=== PATIENT | male | born 1960 | race Caucasian/White ===

== ENCOUNTER → 2019-12-06 09:09 | Outpatient (BNVA) | payer MEDICARE, SELFPAY | PROVIDERS: Family Provider Nurse Practitioner; PCP Nurse Practitioner; Visit Provider Nurse Practitioner | DX: E11.22 Type 2 diabetes mellitus with diabetic chronic kidney disease (principal); N18.9 Chronic kidney disease, unspecified | CPT/HCPCS: 80053; 80061; 81003; 83036 ==

== ENCOUNTER → 2020-03-26 08:32 | Outpatient (BNVA) | payer MEDICARE, SELFPAY | PROVIDERS: Family Provider Nurse Practitioner; PCP Nurse Practitioner; Visit Provider Nurse Practitioner | DX: E11.22 Type 2 diabetes mellitus with diabetic chronic kidney disease (principal); E78.2 Mixed hyperlipidemia; E55.9 Vitamin D deficiency, unspecified | CPT/HCPCS: 80053; 80061; 81003; 82044; 82306; 83036; 83721 ==

== ENCOUNTER → 2020-03-27 10:02 | Outpatient (BNVA) | payer MEDICARE, SELFPAY | PROVIDERS: Family Provider Nurse Practitioner; PCP Nurse Practitioner; Visit Provider Nurse Practitioner | DX: I10 Essential (primary) hypertension (principal); E11.65 Type 2 diabetes mellitus with hyperglycemia; J30.9 Allergic rhinitis, unspecified; E11.22 Type 2 diabetes mellitus with diabetic chronic kidney disease; R53.83 Other fatigue; J45.990 Exercise induced bronchospasm | CPT/HCPCS: 82607; 85025 ==

== ENCOUNTER → 2020-06-11 08:41 | Outpatient (BNVA) | payer MEDICARE, SELFPAY | PROVIDERS: Family Provider Nurse Practitioner; PCP Nurse Practitioner; Visit Provider Nurse Practitioner | DX: E11.22 Type 2 diabetes mellitus with diabetic chronic kidney disease (principal); E53.8 Deficiency of other specified B group vitamins; E55.9 Vitamin D deficiency, unspecified; E78.2 Mixed hyperlipidemia; N18.3 Chronic kidney disease, stage 3 (moderate); Z79.4 Long term (current) use of insulin | CPT/HCPCS: 80053; 80061; 81000; 82607; 83036 ==

== ENCOUNTER → 2020-09-12 10:28 | Outpatient (BNVA) | payer MEDICARE, SELFPAY | PROVIDERS: Family Provider Nurse Practitioner; PCP Nurse Practitioner; Visit Provider Nurse Practitioner | DX: E11.22 Type 2 diabetes mellitus with diabetic chronic kidney disease (principal); Z79.4 Long term (current) use of insulin; I10 Essential (primary) hypertension; E11.65 Type 2 diabetes mellitus with hyperglycemia; E53.8 Deficiency of other specified B group vitamins; J45.990 Exercise induced bronchospasm; J30.9 Allergic rhinitis, unspecified; M25.569 Pain in unspecified knee; N52.9 Male erectile dysfunction, unspecified; G89.29 Other chronic pain; Z23 Encounter for immunization; N18.30 Chronic kidney disease, stage 3 unspecified | CPT/HCPCS: 80053; 80061; 81000; 82306; 83036 ==

== ENCOUNTER → 2020-09-26 08:18 | Outpatient (BNVA) | payer MEDICARE, SELFPAY | PROVIDERS: Family Provider Nurse Practitioner; PCP Nurse Practitioner; Referring Provider Nurse Practitioner; Visit Provider Orthopaedic Surgery | DX: G89.29 Other chronic pain (principal); M25.562 Pain in left knee; M25.561 Pain in right knee | CPT/HCPCS: 73560; 73565 ==

== ENCOUNTER → 2020-11-01 14:07 | Outpatient (BNVA) | payer MEDICARE, SELFPAY | PROVIDERS: Family Provider Nurse Practitioner; PCP Nurse Practitioner; Visit Provider Nurse Practitioner | DX: J45.990 Exercise induced bronchospasm (principal); E11.22 Type 2 diabetes mellitus with diabetic chronic kidney disease; Z79.4 Long term (current) use of insulin; N18.30 Chronic kidney disease, stage 3 unspecified | CPT/HCPCS: 85025 ==

== ENCOUNTER → 2020-12-04 09:45 | Outpatient (BNVA) | payer MEDICARE, SELFPAY | PROVIDERS: Family Provider Nurse Practitioner; PCP Nurse Practitioner; Visit Provider Nurse Practitioner | DX: E11.22 Type 2 diabetes mellitus with diabetic chronic kidney disease (principal); N18.30 Chronic kidney disease, stage 3 unspecified; Z79.4 Long term (current) use of insulin; I10 Essential (primary) hypertension; E55.9 Vitamin D deficiency, unspecified; E53.8 Deficiency of other specified B group vitamins; G89.29 Other chronic pain; M25.569 Pain in unspecified knee; N52.9 Male erectile dysfunction, unspecified; J30.1 Allergic rhinitis due to pollen | CPT/HCPCS: 80053; 83036 ==

== ENCOUNTER → 2021-03-05 09:39 | Outpatient (BNVA) | payer MEDICARE, SELFPAY | PROVIDERS: Family Provider Nurse Practitioner; PCP Nurse Practitioner; Visit Provider Nurse Practitioner | DX: I10 Essential (primary) hypertension (principal); J30.1 Allergic rhinitis due to pollen; E11.22 Type 2 diabetes mellitus with diabetic chronic kidney disease; E53.8 Deficiency of other specified B group vitamins; Z79.4 Long term (current) use of insulin; M25.569 Pain in unspecified knee; G89.29 Other chronic pain; N52.9 Male erectile dysfunction, unspecified; J01.00 Acute maxillary sinusitis, unspecified; J45.990 Exercise induced bronchospasm; J98.8 Other specified respiratory disorders; N18.30 Chronic kidney disease, stage 3 unspecified | CPT/HCPCS: 80053; 80061; 81000; 82043; 83036 ==

== ENCOUNTER → 2021-06-10 08:54 | Outpatient (BNVA) | payer MEDICARE, SELFPAY | PROVIDERS: Family Provider Nurse Practitioner; PCP Nurse Practitioner; Visit Provider Nurse Practitioner | DX: I10 Essential (primary) hypertension (principal); E11.22 Type 2 diabetes mellitus with diabetic chronic kidney disease; Z79.4 Long term (current) use of insulin; E53.8 Deficiency of other specified B group vitamins; M25.569 Pain in unspecified knee; G89.29 Other chronic pain; J30.1 Allergic rhinitis due to pollen; N52.9 Male erectile dysfunction, unspecified; E55.9 Vitamin D deficiency, unspecified; N18.30 Chronic kidney disease, stage 3 unspecified | CPT/HCPCS: 80053; 81000; 82607; 83036 ==

== ENCOUNTER → 2021-09-26 07:58 | Outpatient (BNVA) | payer MEDICARE, SELFPAY | PROVIDERS: Family Provider Nurse Practitioner; PCP Nurse Practitioner; Visit Provider Nurse Practitioner | DX: E11.22 Type 2 diabetes mellitus with diabetic chronic kidney disease (principal); E55.9 Vitamin D deficiency, unspecified; Z79.4 Long term (current) use of insulin; N18.30 Chronic kidney disease, stage 3 unspecified | CPT/HCPCS: 80053; 81000; 83036 ==

== ENCOUNTER → 2021-12-09 07:58 | Outpatient (BNVA) | payer MEDICARE, SELFPAY | PROVIDERS: Family Provider Nurse Practitioner; PCP Nurse Practitioner; Visit Provider Nurse Practitioner | DX: E11.22 Type 2 diabetes mellitus with diabetic chronic kidney disease (principal); I10 Essential (primary) hypertension; Z79.4 Long term (current) use of insulin; N18.30 Chronic kidney disease, stage 3 unspecified | CPT/HCPCS: 80053; 80061; 83036 ==

== ENCOUNTER → 2021-12-11 09:34 | Outpatient (BNVA) | payer MEDICARE, SELFPAY | PROVIDERS: Family Provider Nurse Practitioner; PCP Nurse Practitioner; Visit Provider Nurse Practitioner | DX: E11.22 Type 2 diabetes mellitus with diabetic chronic kidney disease (principal); I12.9 Hypertensive chronic kidney disease with stage 1 through stage 4 chronic kidney disease, or unspecified chronic kidney disease; N18.30 Chronic kidney disease, stage 3 unspecified; Z79.4 Long term (current) use of insulin | CPT/HCPCS: 81000; 87077; 87086; 87184 ==

== ENCOUNTER → 2022-03-10 08:49 | Outpatient (BNVA) | payer MEDICARE, SELFPAY | PROVIDERS: Family Provider Nurse Practitioner; PCP Nurse Practitioner; Visit Provider Nurse Practitioner | DX: E11.22 Type 2 diabetes mellitus with diabetic chronic kidney disease (principal); Z79.4 Long term (current) use of insulin; I10 Essential (primary) hypertension; J30.1 Allergic rhinitis due to pollen; E53.8 Deficiency of other specified B group vitamins; M25.569 Pain in unspecified knee; N52.9 Male erectile dysfunction, unspecified; G89.29 Other chronic pain; M54.50 Low back pain, unspecified | CPT/HCPCS: 80053; 81003; 83036 ==

== ENCOUNTER → 2022-07-03 09:41 | Outpatient (BNVA) | payer MEDICARE, SELFPAY | PROVIDERS: Family Provider Nurse Practitioner; PCP Nurse Practitioner; Visit Provider Nurse Practitioner | DX: I10 Essential (primary) hypertension (principal); J30.1 Allergic rhinitis due to pollen; E53.8 Deficiency of other specified B group vitamins; Z79.4 Long term (current) use of insulin; E11.22 Type 2 diabetes mellitus with diabetic chronic kidney disease; M25.569 Pain in unspecified knee; N52.9 Male erectile dysfunction, unspecified; M17.12 Unilateral primary osteoarthritis, left knee; L03.119 Cellulitis of unspecified part of limb; G89.29 Other chronic pain; M17.11 Unilateral primary osteoarthritis, right knee | CPT/HCPCS: 80053; 80061; 81000; 83036; 85025 ==

== ENCOUNTER → 2022-09-12 07:20 | Outpatient (BNVA) | payer MEDICARE, SELFPAY | PROVIDERS: Family Provider Nurse Practitioner; PCP Nurse Practitioner; Visit Provider Student in an Organized Health Care Education/Training Program | DX: M17.0 Bilateral primary osteoarthritis of knee (principal); Z68.43 Body mass index [BMI] 50.0-59.9, adult; E66.9 Obesity, unspecified | CPT/HCPCS: 20610; 73560; 73565; 99204; J3301 ==

== ENCOUNTER → 2022-09-16 08:03 | Outpatient (BNVA) | payer MEDICARE, SELFPAY | PROVIDERS: Family Provider Nurse Practitioner; PCP Nurse Practitioner; Visit Provider Nurse Practitioner | DX: E11.22 Type 2 diabetes mellitus with diabetic chronic kidney disease (principal); E53.8 Deficiency of other specified B group vitamins; E55.9 Vitamin D deficiency, unspecified; Z79.4 Long term (current) use of insulin | CPT/HCPCS: 80053; 80061; 81000; 82607; 83036; 85025 ==

== ENCOUNTER → 2022-10-27 07:35 | Outpatient (BNVA) | payer MEDICARE, SELFPAY | PROVIDERS: Family Provider Nurse Practitioner; PCP Nurse Practitioner; Visit Provider Student in an Organized Health Care Education/Training Program | DX: M17.0 Bilateral primary osteoarthritis of knee (principal) | CPT/HCPCS: 99213 ==

== ENCOUNTER → 2022-12-15 07:51 | Outpatient (BNVA) | payer MEDICARE, SELFPAY | PROVIDERS: Family Provider Nurse Practitioner; PCP Nurse Practitioner; Visit Provider Student in an Organized Health Care Education/Training Program | DX: M17.0 Bilateral primary osteoarthritis of knee (principal) | CPT/HCPCS: 99213 ==

== ENCOUNTER → 2022-12-25 07:59 | Outpatient (BNVA) | payer MEDICARE, SELFPAY | PROVIDERS: Family Provider Nurse Practitioner; PCP Nurse Practitioner; Visit Provider Nurse Practitioner | DX: E11.22 Type 2 diabetes mellitus with diabetic chronic kidney disease (principal); E53.8 Deficiency of other specified B group vitamins; N52.9 Male erectile dysfunction, unspecified; Z79.4 Long term (current) use of insulin | CPT/HCPCS: 80053; 80061; 81000; 82043; 82607; 83036; 85025 ==

== ENCOUNTER → 2023-02-25 11:05 | Outpatient (BNVA) | payer MEDICARE, SELFPAY | PROVIDERS: Family Provider Nurse Practitioner; PCP Nurse Practitioner; Visit Provider Family Medicine | DX: M25.511 Pain in right shoulder (principal) | CPT/HCPCS: 73030; 73060 ==

== ENCOUNTER → 2023-02-26 14:35 | Outpatient (BNVA) | payer MEDICARE, SELFPAY | PROVIDERS: Family Provider Nurse Practitioner; PCP Nurse Practitioner; Visit Provider Student in an Organized Health Care Education/Training Program | DX: S46.001A Unspecified injury of muscle(s) and tendon(s) of the rotator cuff of right shoulder, initial encounter (principal); S49.91XA Unspecified injury of right shoulder and upper arm, initial encounter; W19.XXXA Unspecified fall, initial encounter | CPT/HCPCS: 99214 ==

== ENCOUNTER 2023-03-05 08:14 | Outpatient (CLI) | payer MEDICARE, SELFPAY ==
--- NOTE | 2023-03-05 08:45 | MR_ITS ---
WS: [id number] EXAMINATION: MR shoulder RT wo con* [id number] ORDER DATE: 03/05/2023 9:25 AM COMPARISON: None. HISTORY: shoulder injury CONTRAST: None. TECHNIQUE: Axial T2 STAR, coronal proton density fat sat, sagittal T2 fat sat, sagittal proton densit y fat sat, axial proton density fat sat, coronal T2 fat sat, and coronal T1 performed. After contrast , axial T1 fat sat, coronal T1 fat sat, and sagittal T1 fat sat were performed. FINDINGS: Moderate arthritis AC joint with mild edema. Slight subacromial spurring. Subacromial space is preser abisai. Normal supraspinatus and infraspinatus. Normal subscapularis. Normal teres minor. Small intrasub stance tear distal supraspinatus extending to the insertion. No high-grade rotator cuff tears. Normal biceps tendon in the bicipital groove. Normal biceps labral anchor. Degenerative fraying gleno id labrum which appears intact. Intra-articular biceps tendon is intact. Biceps labral anchor appears intact. MR/MR shoulder RT wo con* [id number] IMPRESSION: 1. Moderate degenerative arthritis AC joint. 2. Small intrasubstance tear distal supraspinatus extending to the insertion. No high-grade rotator cuff tears. 3. Normal biceps tendon in the bicipital groove. 4. Moderate degenerative arthritis glenohumeral joint. Degenerative fraying of the glenoid labrum.
== END 2023-03-05 08:15 | disposition home or self-care (01) ==
LOC: RAD 08:18
PROVIDERS: PCP Nurse Practitioner; Visit Provider Student in an Organized Health Care Education/Training Program
DX: M25.511 Pain in right shoulder (principal); M19.011 Primary osteoarthritis, right shoulder
CPT/HCPCS: 73221

== ENCOUNTER → 2023-03-09 10:15 | Outpatient (BNVA) | payer MEDICARE, SELFPAY | PROVIDERS: PCP Nurse Practitioner; Visit Provider Student in an Organized Health Care Education/Training Program | DX: S46.011A Strain of muscle(s) and tendon(s) of the rotator cuff of right shoulder, initial encounter (principal); X58.XXXA Exposure to other specified factors, initial encounter | CPT/HCPCS: 20610; 99214; J3301 ==

== ENCOUNTER → 2023-03-16 10:19 | Outpatient (BNVA) | payer MEDICARE, SELFPAY | PROVIDERS: PCP Nurse Practitioner; Visit Provider Nurse Practitioner | DX: E11.22 Type 2 diabetes mellitus with diabetic chronic kidney disease (principal); N52.9 Male erectile dysfunction, unspecified; Z79.4 Long term (current) use of insulin; S46.219A Strain of muscle, fascia and tendon of other parts of biceps, unspecified arm, initial encounter; X58.XXXA Exposure to other specified factors, initial encounter | CPT/HCPCS: 80053; 80061; 82607; 83036; 85379 ==

== ENCOUNTER 2023-03-21 09:00 | Outpatient (CLI) | payer MEDICARE, SELFPAY ==
--- NOTE | 2023-03-21 09:15 | MR_ITS ---
WS: [id number] MRI RIGHT ELBOW without CONTRAST. COMPARISON: None Multiplanar, multisequence imaging is performed without contrast. The brachialis tendon is intact but adjacent to the tendon is increased T2 signal within the muscle a s it approaches the olecranon. No tendon tear. The biceps tendon is normal position and extends towar ds the radial tuberosity. No tear. There is additional edema within the superficial extensor carpi di gitorum muscle. The brachial radialis muscle contains a small amount of increased signal also, very s uperficial. Increased signal in the lateral collateral ligament consistent with partial tear. Common flexor tendo n appears intact. Small joint effusion. MR/MR elbow RT wo con* [id number] IMPRESSION: 1. Superficial edema most likely secondary to contusion involving the brachior adialis muscle and extensor carpi digitorum muscle. No intramuscular hemorrhage . 2. Brachialis tendon is intact. Adjacent to the brachialis tendon near its ins ertion site to the ulna is additional muscle edema. 3. Partial tear lateral collateral ligament.
== END 2023-03-21 09:01 | disposition home or self-care (01) ==
PROVIDERS: PCP Nurse Practitioner; Visit Provider Student in an Organized Health Care Education/Training Program
DX: S53.401A Unspecified sprain of right elbow, initial encounter (principal); X58.XXXA Exposure to other specified factors, initial encounter
CPT/HCPCS: 73221

== ENCOUNTER → 2023-03-30 08:05 | Outpatient (BNVA) | payer MEDICARE, SELFPAY | PROVIDERS: PCP Nurse Practitioner; Visit Provider Student in an Organized Health Care Education/Training Program | DX: Z09 Encounter for follow-up examination after completed treatment for conditions other than malignant neoplasm (principal); M25.521 Pain in right elbow; M25.511 Pain in right shoulder | CPT/HCPCS: 99213 ==

== ENCOUNTER 2023-04-03 14:24 | Outpatient (CLI) | payer MEDICARE, SELFPAY ==
--- NOTE | 2023-04-03 15:00 | US_ITS ---
WS: [id number] ULTRASOUND SOFT TISSUES RIGHT arm HISTORY: rule out biceps tendon rupture COMPARISON: None available. TECHNIQUE: 2-D and color Doppler imaging is submitted. Biceps tendon is identified in the antecubital fossa extending towards the radial tuberosity. The ten don appears intact but does not contract. There is no adjacent edema. US/US soft tissue/extremity [id number] IMPRESSION: Biceps tendon is identified at the elbow. No full-thickness tear.
== END 2023-04-03 14:25 | disposition home or self-care (01) ==
PROVIDERS: PCP Nurse Practitioner; Visit Provider Student in an Organized Health Care Education/Training Program
DX: S46.211A Strain of muscle, fascia and tendon of other parts of biceps, right arm, initial encounter (principal); X58.XXXA Exposure to other specified factors, initial encounter
CPT/HCPCS: 76882

== ENCOUNTER 2023-04-15 06:00 | Outpatient (RCR) | payer MEDICARE, SELFPAY | END 2023-04-15 23:59 | disposition home or self-care (01) | LOC: TPT 06:00 | PROVIDERS: PCP Family Medicine; Visit Provider Student in an Organized Health Care Education/Training Program | DX: R53.1 Weakness (principal); M79.621 Pain in right upper arm | CPT/HCPCS: 97163 ==

== ENCOUNTER 2023-04-16 06:00 | Outpatient (RCR) | payer MEDICARE, SELFPAY | END 2023-05-15 23:59 | disposition home or self-care (01) | LOC: TPT 06:00 | PROVIDERS: PCP Family Medicine; Visit Provider Student in an Organized Health Care Education/Training Program | DX: M79.621 Pain in right upper arm (principal); R53.1 Weakness | CPT/HCPCS: 97032; 97110; 97140 ==

== ENCOUNTER 2023-05-12 10:29 | Outpatient (CLI) | payer MEDICARE, SELFPAY ==
--- NOTE | 2023-05-12 10:39 | XR_ITS ---
WS: [id number] Exam: XR hip RT 2-3V wo/w pel* [id number] Date/Time of Exam: 05/12/2023 10:50 AM Reason For Exam: M25.551 - Pain in right hip No fracture or dislocation. Mild degenerative change of the joint compartment. Normal soft tissues. XR/XR hip RT 2-3V wo/w pel* [id number] IMPRESSION: 1. Mild DJD.
== END 2023-05-12 10:30 | disposition home or self-care (01) ==
PROVIDERS: PCP Family Medicine; Visit Provider Family Medicine
DX: M16.11 Unilateral primary osteoarthritis, right hip (principal)
CPT/HCPCS: 73502

== ENCOUNTER → 2023-05-18 06:55 | Outpatient (BNVA) | payer MEDICARE, SELFPAY | PROVIDERS: PCP Family Medicine; Visit Provider Student in an Organized Health Care Education/Training Program | DX: M70.71 Other bursitis of hip, right hip (principal); M54.31 Sciatica, right side | CPT/HCPCS: 99213 ==

== ENCOUNTER 2023-06-03 06:00 | Outpatient (RCR) | payer MEDICARE, SELFPAY | END 2023-06-15 23:59 | disposition home or self-care (01) | LOC: TPT 06:00 | PROVIDERS: Visit Provider Student in an Organized Health Care Education/Training Program | DX: M25.551 Pain in right hip (principal); M54.31 Sciatica, right side | CPT/HCPCS: 97110; 97163 ==

== ENCOUNTER → 2023-06-11 09:40 | Outpatient (BNVA) | payer MEDICARE, SELFPAY | PROVIDERS: PCP Nurse Practitioner; Visit Provider Nurse Practitioner | DX: E11.22 Type 2 diabetes mellitus with diabetic chronic kidney disease (principal); E53.8 Deficiency of other specified B group vitamins; E55.9 Vitamin D deficiency, unspecified | CPT/HCPCS: 80053; 80061; 82306; 82607; 83036; 84443; 85025 ==

== ENCOUNTER → 2023-06-16 09:36 | Outpatient (BNVA) | payer MEDICARE, SELFPAY | PROVIDERS: PCP Nurse Practitioner; Visit Provider Nurse Practitioner | DX: E11.22 Type 2 diabetes mellitus with diabetic chronic kidney disease (principal) | CPT/HCPCS: 81000 ==

== ENCOUNTER → 2023-06-17 08:56 | Outpatient (BNVA) | payer MEDICARE, SELFPAY | PROVIDERS: PCP Nurse Practitioner; Visit Provider Anesthesiology Pain Medicine | DX: M70.71 Other bursitis of hip, right hip; M54.31 Sciatica, right side | CPT/HCPCS: 99204 ==

== ENCOUNTER → 2023-07-08 14:15 | Outpatient (BNVA) | payer MEDICARE, SELFPAY | PROVIDERS: PCP Nurse Practitioner; Visit Provider Anesthesiology Pain Medicine | DX: M70.71 Other bursitis of hip, right hip (principal); Y93.9 Activity, unspecified | CPT/HCPCS: 20610; 77002; J1030; J3490 ==

== ENCOUNTER → 2023-07-22 09:43 | Outpatient (BNVA) | payer MEDICARE, SELFPAY | PROVIDERS: PCP Nurse Practitioner; Visit Provider Anesthesiology Pain Medicine | DX: M70.71 Other bursitis of hip, right hip; M54.31 Sciatica, right side; M54.50 Low back pain, unspecified; M17.0 Bilateral primary osteoarthritis of knee; Y93.9 Activity, unspecified | CPT/HCPCS: 99214 ==

== ENCOUNTER → 2023-08-11 09:27 | Outpatient (BNVA) | payer MEDICARE, SELFPAY | PROVIDERS: PCP Nurse Practitioner; Visit Provider Anesthesiology Pain Medicine | DX: M70.71 Other bursitis of hip, right hip; M54.31 Sciatica, right side; M17.0 Bilateral primary osteoarthritis of knee | CPT/HCPCS: 20610; 99214; J1030; J3490 ==

== ENCOUNTER → 2023-08-31 14:07 | Outpatient (BNVA) | payer MEDICARE, SELFPAY | PROVIDERS: PCP Nurse Practitioner; Visit Provider Anesthesiology Pain Medicine | DX: M70.71 Other bursitis of hip, right hip; M54.31 Sciatica, right side; M17.0 Bilateral primary osteoarthritis of knee; Y93.9 Activity, unspecified | CPT/HCPCS: 99214 ==

== ENCOUNTER → 2023-09-07 08:03 | Outpatient (BNVA) | payer MEDICARE, SELFPAY | PROVIDERS: PCP Nurse Practitioner; Visit Provider Nurse Practitioner | DX: E11.22 Type 2 diabetes mellitus with diabetic chronic kidney disease (principal); E53.8 Deficiency of other specified B group vitamins; E55.9 Vitamin D deficiency, unspecified; Z79.4 Long term (current) use of insulin; N52.9 Male erectile dysfunction, unspecified | CPT/HCPCS: 80053; 80061; 82306; 82607; 83036; 84443; 85025 ==

== ENCOUNTER → 2023-09-24 13:11 | Outpatient (BNVA) | payer MEDICARE, SELFPAY | PROVIDERS: PCP Nurse Practitioner; Visit Provider Anesthesiology Pain Medicine | DX: M70.72 Other bursitis of hip, left hip (principal); Y93.9 Activity, unspecified | CPT/HCPCS: 20610; 77002; J1030; J3490 ==

== ENCOUNTER → 2023-10-26 17:23 | Outpatient (BNVA) | payer MEDICARE, SELFPAY | PROVIDERS: PCP Nurse Practitioner; Visit Provider Family Medicine | DX: M25.569 Pain in unspecified knee (principal); M17.12 Unilateral primary osteoarthritis, left knee | CPT/HCPCS: 73562 ==

== ENCOUNTER 2023-10-29 11:43 | Outpatient (CLI) | payer MEDICARE, SELFPAY ==
--- NOTE | 2023-10-29 12:15 | MR_ITS ---
WS: [id number] MRI HEAD WITHOUT CONTRAST TECHNIQUE: Sagittal T1, T2 axial, T2 axial FLAIR, axial and coronal T1 images, axial susceptibility w eighted imaging, axial diffusion weighted images, and coronal T2 images were obtained. CLINICAL INFORMATION: R51.9 - Headache, unspecified COMPARISON: None. FINDINGS: No evidence of restricted diffusion to suggest acute ischemia. Ventricular system and basal cisterns are patent. 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 As sociated hemosiderin in this area. Mild small vessel changes. Mild parenchymal volume loss. Normal po sterior fossa. Normal vascular flow voids at the skull base. No extra-axial fluid collections. No johanna dence of mass or mass effect. Paranasal sinuses are well aerated. Mild mucosal thickening LEFT mastoi d tip. Normal posterior nasopharynx. Normal optic chiasm and pituitary infundibulum. Mild symmetric atrophy temporal lobes and hippocampal formations. IMPRESSION: 1. No evidence of restricted diffusion to suggest acute ischemia. 2. 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 3. Mild small vessel changes. Mild parenchymal volume loss. 4. Mild symmetric atrophy temporal lobes and hippocampal formations. 5. Mild mucosal thickening LEFT mastoid tip.
== END 2023-10-29 11:44 | disposition home or self-care (01) ==
LOC: RAD 11:43
PROVIDERS: PCP Nurse Practitioner; Visit Provider Family Medicine
DX: R51.9 Headache, unspecified (principal); Z86.73 Personal history of transient ischemic attack (TIA), and cerebral infarction without residual deficits; G93.89 Other specified disorders of brain
CPT/HCPCS: 70551

== ENCOUNTER 2023-11-05 09:48 | Oncology outpatient (recurring) (ONCR) | payer MEDICARE, SELFPAY ==
[2023-10-30 08:59] LABS: Basophils % 0.4 %; Eosinophils # 0.1 10^3/uL (0.0-0.8); Eosinophils % 1.8 %; Hematocrit 52.2 % (37-53); Lymphocytes # 1.3 10^3/uL (0.8-4.8); Lymphocytes % 17.2 %; Mean Corpuscular HGB Conc 34.5 g/dL (30-55); Mean Corpuscular Hemoglobin 30.1 pg (27-33); Mean Corpuscular Volume 87.3 fl (82-101); Mean Platelet Volume 9.9 fL (7.4-10.4); Monocytes # 0.6 10^3/uL (0.2-0.9); Monocytes % 7.5 %; Neutrophils # 5.32 10^3/uL (1.8-7.7); Neutrophils % 72.7 %; Nucleated Red Blood Cells % 0 %; Platelet Count 315 10^3/cmm (157-399); Red Blood Count 5.98 10^6/uL (3.85-5.65); Red Cell Distribution Width 13.8 % (12.1-15.1); White Blood Count 7.32 10^3/uL (3.29-11.43)
[2023-10-30 09:13] LABS: Alanine Aminotransferase 12 U/L (0-41); Albumin Level 3.5 g/dL (3.5-5.2); Alkaline Phosphatase 51 U/L (40-130); Anion Gap 15.7 (5-19); Aspartate Amino Transferase 16 U/L (0-40); Blood Urea Nitrogen 11 mg/dL (8-23); Calcium 9.3 mg/dL (8.5-10.5); Carbon Dioxide 26 mmol/L (22-29); Chloride 101 mmol/L (98-107); Glomerular Filtration Rate 84.7 mL/min (90-130); Glucose 193 mg/dL (65-115); Osmolality Calculated 293 mOsm/kg (285-295); Potassium 3.7 mmol/L (3.5-5.1); Sodium 139 mmol/L (136-145); Total Bilirubin 0.6 mg/dL (0.15-1.2); Total Protein 6.5 g/dL (6.6-8.7)
[2023-10-30 09:53] LABS: Lactate Dehydrogenase 211 U/L (135-225)
[2023-11-03 12:38] LABS: Erythropoietin 17.7 mIU/mL (2.6-18.5)
[2023-11-05 10:57] LABS: INR 1.01 (0.8-1.2)
[2023-11-05 11:52] LABS: LAB Peripheral Smear Sent for Review
[2023-11-06 07:05] LABS: PROTEIN, TOTAL 6.2 g/dL (6.1-8.1)
[2023-11-06 14:40] LABS: KAPPA LIGHT CHAIN, FREE, SERUM 36.1 mg/L (3.3-19.4); KAPPA/LAMBDA LIGHT CHAINS FREE 1.47 (0.26-1.65); LAMBDA LIGHT CHAIN, FREE, SERU 24.6 mg/L (5.7-26.3)
[2023-11-06 15:14] LABS: ALBUMIN 3.2 g/dL (3.8-4.8); ALPHA 1 GLOBULIN 0.3 g/dL (0.2-0.3); ALPHA 2 GLOBULIN 1.2 g/dL (0.5-0.9); BETA 1 GLOBULIN 0.4 g/dL (0.4-0.6); BETA 2 GLOBULIN 0.5 g/dL (0.2-0.5); GAMMA GLOBULIN 0.5 g/dL (0.8-1.7)
[2023-11-06 16:05] LABS: Creatinine, Random Urine 56 mg/dL (20-320); Protein, Total, Random 837 mg/dL (5-25); Protein/Creatinine Ratio 14.946 (0.025-0.148); Protein/Creatinine Ratio 14946 mg/g creat (25-148)
[2023-11-11 12:50] LABS: Albumin,Urine Random 62 %; Alpha-1-Globulins Urine Random 10 %; Alpha-2-Globulins Urine Random 8 %; Beta-Globulin,Urine Random 13 %; Gamma Globulin,Urine Random 7 %
[2023-11-18 16:21] LABS: CALR Exon 9 Mutation NOT DETECTED (NOT DETECTED); CSF3R Exon 14/17 Mutation NOT DETECTED (NOT DETECTED); JAK2 Exon 12 Mutation NOT DETECTED (NOT DETECTED); JAK2 V617 Block Specimen ID NG; JAK2 V617 Clinical Indication NG; JAK2 V617 Mutation NOT DETECTED (NOT DETECTED); JAK2 V617 Specimen Source NG; MPL Exon 12 Mutation NOT DETECTED (NOT DETECTED)
== END 2023-11-15 23:59 | disposition home or self-care (01) ==
PROVIDERS: PCP Nurse Practitioner; Visit Provider Internal Medicine
DX: D75.1 Secondary polycythemia (principal); M17.0 Bilateral primary osteoarthritis of knee; M70.71 Other bursitis of hip, right hip; M54.31 Sciatica, right side; Y93.9 Activity, unspecified; Z53.9 Procedure and treatment not carried out, unspecified reason
CPT/HCPCS: 20610; 36415; 80053; 80503; 81270; 81279; 81339; 81479; 82570; 82668; 83615; 83883; 84155; 84156; 84165; 84166; 85025; 85610; 85730; 86334; 86335; 99204; 99214; J1030; J3490

== ENCOUNTER 2023-11-13 06:47 | Outpatient (CLI) | payer MEDICARE, SELFPAY ==
--- NOTE | 2023-11-13 07:15 | USR_ITS ---
PROCEDURE INFORMATION: Exam: US Abdomen Complete Exam date and time: 11/13/2023 7:03 AM Age: 63 years old Clinical indication: Abdominal pain; Additional info: Polycythemia TECHNIQUE: Imaging protocol: Real-time ultrasound of the abdomen with image documentation. Complete exam. COMPARISON: No relevant prior studies available. FINDINGS: Liver: Normal. No mass. Patent main portal vein with normal direction of flow. Gallbladder: Normal. No gallstones. There is no gallbladder wall thickening. Biliary ducts: Normal. No stones. No dilation. Pancreas: Visualized pancreas is unremarkable. Right kidney: Normal. No mass. No hydronephrosis. Left kidney: Normal. No mass. No hydronephrosis. Small cysts noted, the largest measuring 2.9 cm. Spleen: Normal. No splenomegaly. Aorta: Normal. No aneurysm. Inferior vena cava: Normal. US/US abdomen complete* [id number] IMPRESSION: No acute findings.
== END 2023-11-13 06:48 | disposition home or self-care (01) ==
LOC: RAD 06:48
PROVIDERS: PCP Nurse Practitioner; Visit Provider Internal Medicine
DX: D75.1 Secondary polycythemia (principal); R10.9 Unspecified abdominal pain
CPT/HCPCS: 76700

== ENCOUNTER 2023-11-18 07:07 | Emergency (ER) | payer MEDICARE, SELFPAY ==
[2023-11-18] VITALS (9 sets, daily range): BP systolic 146–221; BP diastolic 86–120; PULSE 62–69; RESP 18; TEMP 36.6; O2SAT 94–97; BMI 43.2
--- NOTE | 2023-11-18 07:25 | ECG_ITS ---
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 Measurements Intervals [place] Rate: 68 P: 12 LA: 194 QRS: -33 QRSD: 107 T: 9 QT: 397 QTc: 423 Interpretive Statements SINUS RHYTHM WITH SINUS ARRHYTHMIA LEFT AXIS DEVIATION [QRS AXIS < -30] POSSIBLE ANTERIOR MYOCARDIAL INFARCTION , OF INDETERMINATE AGE [30 ms Q WAVE IN V3/V4, OR R < 0.2 mV IN V4] No previous ECG available for comparison Electronically Signed On 11-18-2023 7:53:12 AUTOMOBILE LOCATOR by Selvin Huff M.D. [id number]
--- NOTE | 2023-11-18 07:34 | W.ED.GENADLT ---
HPI - General Adult General: Chief complaint: General Medical Stated complaint: BP Time Seen by Provider: 11/18/23 07:12 Source: patient Mode of arrival: ambulatory History of Present Illness: 63-year-old male presents emergency room with complaints of elevated blood pressure headache and chest discomfort. He was seen yesterday by his primary care doctor for hypertension they put him on clonidine. His blood pressure still elevated this morning presents to the emergency room with the above symptoms. Patient seen his primary care doctor yesterday and was given clonidine. He had previously been on amlodipine that was stopped he did not have any problems medications of stopped because it did not seem efficacious. He is also on BenzePrO and metoprolol as well as hydralazine. He has a history of diabetes mellitus. He has severe sleep apnea. He uses oxymetazoline is on a regular basis for sinus congestion particularly at night to help with his CPAP. He also has been noted to have polycythemia. Associated symptoms: Deny chest pain, dyspnea or rash Review of Systems Const: Denies: fever(s) or chills Card: Denies: chest pain Resp: Denies: dyspnea GI: Denies: abdominal pain : Denies: dysuria, urinary frequency or urinary urgency Musc: Denies: neck pain or back pain Skin/Breast: Denies: rash PFSH ED PFSH: Medical History Sleep apnea treated with continuous positive airway pressure (CPAP) Morbid obesity with BMI of 40.0-44.9, adult Erectile dysfunction Bronchospasm, exercise-induced Seasonal allergic rhinitis HTN, goal below 130/80 Mixed hyperlipidemia Obesity Vitamin D deficiency Type 2 diabetes mellitus with diabetic chronic kidney disease 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 Surgical History History of knee surgery both 2006 Family History Mother Cancer Diabetes Hypertension Social History Smoking and tobacco/nicotine status: tobacco/nicotine user, details unknown cigarettes Packs smoked per day: 1 Years cigarettes smoked: 10 and smokeless tobacco Smokeless tobacco user: chewing tobacco Smokeless tobacco details: 4-5 years Quit status (tobacco/nicotine): has quit using Alcohol intake: never Substance/Drug Use: never Adopted: No Caregiver/support person: No Lives independently: Yes Household members: spouse Housing: House Marital status: Number of children: 2 service: No Current occupational status: disabled Pets and animals: Yes Do you think of yourself as: Straight/Heterosexual Current gender identity: Male Physical Exam Const: COMMON NORMALS: no acute distress GENERAL APPEARANCE: cooperative and comfortable ORIENTATION/CONSCIOUSNESS: Yes awake, Yes oriented to person, Yes oriented to place and Yes oriented to time HENMT: COMMON NORMALS: normocephalic, atraumatic and hearing grossly normal bilaterally HEAD & SCALP: normocephalic and atraumatic Resp: COMMON NORMALS: normal respiratory effort, No retractions, No use of accessory muscles and clear to auscultation bilaterally AUSCULTATION: clear to auscultation bilaterally Cardio: COMMON NORMALS: regular rate, regular rhythm and No murmurs present (Cardio) RATE: regular rate RHYTHM: regular rhythm GI: COMMON NORMALS: Soft to palpation and No hepatosplenomegaly present AUSCULTATION: Yes normoactive bowel sounds PALPATION: Yes Soft to palpation, No Tenderness to palpation present (GI), No Guarding due to palpation present (GI) and Yes No hepatosplenomegaly present Extremity: COMMON NORMALS: normal to inspection, capillary refill normal, no clubbing, cyanosis or edema, no calf tenderness and no pedal edema Neuro: SENSORIUM/ORIENTATION: Yes oriented to person, Yes oriented to place and Yes oriented to time Skin: COMMON NORMALS: no rashes or lesions noted GENERAL SKIN EXAM: no rashes or lesions noted Course Vital Signs: Vital signs: Vital Signs Temperature 97.9 F 11/18/23 07:16 Pulse Rate 68 11/18/23 11:17 Respiratory Rate 18 11/18/23 07:16 Blood Pressure 157/90 11/18/23 11:17 Pulse Oximetry 97 11/18/23 11:17 Oxygen Delivery Me thod Room Air 11/18/23 10:31 [facility] - General Adult Medical Decision Making His renal function has been good he had 1 episode where it was slightly elevated otherwise it has been normal. He is already on the max dose of benazepril. Would recommend stopping the oral clonidine and switching to a patch to avoid rebound hypertension. Also recommend adding amlodipine to his current medication list he already has a full beta-blockade would not tolerate a higher dose of this. Given his history of diabetes his current Lasix dose and his benazepril are concerning and should be monitored closely and the Lasix tapered or stopped if at all possible. Would also recommend adding back amlodipine 10 mg daily. Referral to pulmonology to further evaluate treatment for his sleep apnea which is likely the cause of his polycythemia. Believe it is secondary to his sleep apnea and obesity hypoventilation. There is room to increase on his hydralazine if necessary. Stressed to the patient the importance of him not using oxymetazoline on as this medication should not be used on a regular long-term basis additionally it can have systemic effects and is likely adversely affecting his blood pressure control. Patient felt that since he had been using it for long period of time that it was not likely a contributor discussed with him the blood pressure is not a static issue and that it likely has been controlling his blood pressure for some time and as time goes on blood pressure control becomes more difficult becomes more imperative that he not use this. Understanding he will likely have worsening problems with his sleep apnea especially when he first stops that he will probably get some rebound hyperemia in his sinus passages. Will have him start with Flonase 2 sprays twice daily. Medical Records I reviewed the patient's medical records. Lab Data I reviewed the patient's lab results. 11/18/23 07:34 11/18/23 07:34 Laboratory Results WBC 9.17 10^3/uL (3.29-11.43) 11/18/23 07:34 RBC 5.74 10^6/uL (3.85-5.65) H 11/18/23 07:34 Hgb 17.40 g/dL (11.27-16.99) H 11/18/23 07:34 Hct 50.2 % (37-53) 11/18/23 07:34 MCV 87.5 fl (82-101) 11/18/23 07:34 MCH 30.3 pg (27-33) 11/18/23 07:34 MCHC 34.7 g/dL (30-55) 11/18/23 07:34 RDW 14.0 % (12.1-15.1) 11/18/23 07:34 Plt Count 303 10^3/cmm (157-399) 11/18/23 07:34 MPV 9.7 fL (7.4-10.4) 11/18/23 07:34 Neut % (Auto) 77.7 % 11/18/23 07:34 Lymph % (Auto) 13.3 % 11/18/23 07:34 Phillips % (Auto) 6.7 % 11/18/23 07:34 Eos % (Auto) 1.3 % 11/18/23 07:34 Baso % (Auto) 0.7 % 11/18/23 07:34 Neut # (Auto) 7.13 10^3/uL (1.8-7.7) 11/18/23 07:34 Lymph # (Auto) 1.2 10^3/uL (0.8-4.8) 11/18/23 07:34 Phillips # (Auto) 0.6 10^3/uL (0.2-0.9) 11/18/23 07:34 Eos # (Auto) 0.1 10^3/uL (0.0-0.8) 11/18/23 07:34 Baso # (Auto) 0.1 10^3/uL (0.0-0.1) 11/18/23 07:34 Nucleated RBC % (auto) 0 % 11/18/23 07:34 Nucleated RBCs # 0.0 /100WBC 11/18/23 07:34 Sodium 138 mmol/L (136-145) 11/18/23 07:34 Potassium 3.4 mmol/L (3.5-5.1) L 11/18/23 07:34 Chloride 99 mmol/L (98-107) 11/18/23 07:34 Carbon Dioxide 26 mmol/L (22-29) 11/18/23 07:34 Anion Gap 16.4 (5-19) 11/18/23 07:34 BUN 8 mg/dL (8-23) 11/18/23 07:34 Creatinine 0.8 mg/dL (0.7-1.2) 11/18/23 07:34 GFR Calculation 97.0 mL/min (90-130) 11/18/23 07:34 Glucose 170 mg/dL (65-115) H 11/18/23 07:34 Calculated Osmolality 288 mOsm/kg (285-295) 11/18/23 07:34 Calcium 9.1 mg/dL (8.5-10.5) 11/18/23 07:34 Total Bilirubin 0.6 mg/dL (0.15-1.2) 11/18/23 07:34 AST 11 U/L (0-40) 11/18/23 07:34 ALT 9 U/L (0-41) 11/18/23 07:34 Alkaline Phosphatase 64 U/L (40-130) 11/18/23 07:34 Troponin T Baseline 37 ng/L (0-15) H 11/18/23 07:34 Troponin T 120 Minute 32.60 ng/L (0-15) H 11/18/23 09:26 Delta Troponin T -4.40 ABS# (0-10) L 11/18/23 09:26 Total Protein 6.4 g/dL (6.6-8.7) L 11/18/23 07:34 Albumin 3.5 g/dL (3.5-5.2) 11/18/23 07:34 Globulin 2.9 g/dL (1.3-4.6) 11/18/23 07:34 All radiology interpretation(s) finalized by discharge Discharge Plan Discharge Patient Disposition: Home Clinical Impression: Hypertension, Morbid obesity with BMI of 40.0-44.9, adult, Sleep apnea treated with continuous positive airway pressure (CPAP), 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 clonidine for the first 2 days you have the patch on Changed benazepril 40 mg tablet 20 mg PO BID Qty: 90 0RF Discontinued clonidine HCl 0.2 mg tablet 0.2 mg PO TID Qty: 90 2RF No Action (DME) nebulizers Misc See Rx Instructions .ROUTE .MEDSUPPLY Qty: 1 0RF Rx Instructions: daily (DME) insulin syringe-needle U-100 1 mL 31 gauge x 5/16 syringe See Rx Instructions .ROUTE .MEDSUPPLY Qty: 100 5RF Rx Instructions: use 3 times day cyanocobalamin (vitamin B-12) 1,000 mcg/mL kit 1,000 mcg IM .once monthly Qty: 1 2RF Rx Instructions: around the cyclobenzaprine 10 mg tablet 10 mg PO TID PRN (Reason: muscle spasm) Qty: 90 2RF Synjardy 12.5-1,000 mg tablet 1 tab PO BID Qty: 180 0RF ergocalciferol (vitamin D2) 1,250 mcg (50,000 unit) capsule 1,250 mcg PO .weekly Qty: 4 2RF Rx Instructions: on Thursday lidocaine 5 % adhesive patch,medicated 2 patch TOPICAL DAILY Qty: 60 2RF Rx Instructions: leave on most painful area for up to 12 hrs metoprolol succinate [Toprol XL] 100 mg tablet extended release 24 hr 100 mg PO DAILY Qty: 90 0RF Rx Instructions: dose increase. pravastatin 40 mg tablet 40 mg PO QDAY Qty: 90 0RF sildenafil (pulm.hypertension) 20 mg tablet 40 mg PO DAILY Qty: 180 0RF tramadol 50 mg tablet 50 mg PO Q6H Qty: 90 2RF Excedrin Extra Strength 250-250-65 mg tablet 1 tab PO Q6H PRN (Reason: Headache) [place] Original 325-1,916-1,000 mg tablet, effervescent 1 tab PO Q4H PRN (Reason: Indigestion) Rx Instructions: do not exceed 4 tabs per 24 hrs Sore Muscle Rub 2.5 % gel 1 applic topical QID hydrocodone-acetaminophen 7.5-325 mg tablet 1 tab PO Q8H PRN (Reason: pain) 10 Days Qty: 30 0RF mupirocin 2 % ointment 1 applic topical BID Qty: 22 1RF (DME) pen needle, diabetic 31 gauge x 5/16 needle See Rx Instructions .ROUTE .MEDSUPPLY Qty: 100 5RF Rx Instructions: 6 times day hydralazine 50 mg tablet 50 mg PO Q8H Qty: 90 0RF Lasix 40 mg tablet See Rx Instructions .ROUTE .COMPLEX PRN (Reason: edema) Rx Instructions: Take 40 mg orally daily and may take 1 extra tablet as needed for swelling or edema. potassium chloride 10 mEq tablet extended release See Rx Instructions .ROUTE .COMPLEX PRN (Reason: low potassium) Rx Instructions: Take 10 mEq orally daily and take 1 extra tablet daily as needed for swelling or edema. Levemir FlexTouch U100 Insulin 100 unit/mL (3 mL) insulin pen See Rx Instructions .ROUTE .COMPLEX Rx Instructions: Take up to 80 units subcutaneously in the evening. Discharge Orders: Discharge ED (Routine); Ordered 11/18/23 Ordered By: Anupam Eckert Referrals: Chasity Lopez MD [Primary Care Provider] - Patient Instructions: Opioid Safety, Pain Management Activity Restrictions/Additional Instructions: Thank you for choosing [facility] for your healthcare needs today. Please realize this is an emergency room and that we are providing you with a medical screening exam and this may not be complete and all inclusive of all the testing and or work up that you may need to determine your ailment or severity of your illness. It is very important that you follow up as instructed or that you return to the Emergency Department should you have concerns or if your condition changes or worsens in any way. Recommend you do not use the oxymetazoline as that will adversely affect your blood pressure. Stop the clonidine tablets and instead use a clonidine patch 0.2 mg once a week. Add Amel loaded pain 10 mg daily. Change her benazepril to 20 mg twice daily. You should recheck your blood pressure with your primary care doctor within the next week. Additionally adult protective caseworker will make arrangements for you to see pulmonology to evaluate for your sleep apnea. Your elevated hemoglobin and red blood cell counts are likely secondary to hypoxia from your sleep apnea appropriately controlling your sleep apnea will likely cluck correct the problem if pulmonology feels it is appropriate they can refer you to hematology oncology. You should follow-up with your primary care doctor within the next 3 to 5 days to recheck your blood pressure. Coding Level of Care Code ED Media Traffic Manager for Didier Heard
[2023-11-18 07:41] LABS: Basophils # 0.1 10^3/uL (0.0-0.1); Basophils % 0.7 %; Eosinophils # 0.1 10^3/uL (0.0-0.8); Eosinophils % 1.3 %; Hematocrit 50.2 % (37-53); Lymphocytes # 1.2 10^3/uL (0.8-4.8); Lymphocytes % 13.3 %; Mean Corpuscular HGB Conc 34.7 g/dL (30-55); Mean Corpuscular Hemoglobin 30.3 pg (27-33); Mean Corpuscular Volume 87.5 fl (82-101); Mean Platelet Volume 9.7 fL (7.4-10.4); Monocytes # 0.6 10^3/uL (0.2-0.9); Monocytes % 6.7 %; Neutrophils # 7.13 10^3/uL (1.8-7.7); Neutrophils % 77.7 %; Nucleated Red Blood Cells % 0 %; Platelet Count 303 10^3/cmm (157-399); Red Blood Count 5.74 10^6/uL (3.85-5.65); White Blood Count 9.17 10^3/uL (3.29-11.43)
[2023-11-18] MEDS: amlodipine 10 mg Tablet PO (07:59)
[2023-11-18 08:02] LABS: Alanine Aminotransferase 9 U/L (0-41); Albumin Level 3.5 g/dL (3.5-5.2); Alkaline Phosphatase 64 U/L (40-130); Anion Gap 16.4 (5-19); Aspartate Amino Transferase 11 U/L (0-40); Blood Urea Nitrogen 8 mg/dL (8-23); Calcium 9.1 mg/dL (8.5-10.5); Carbon Dioxide 26 mmol/L (22-29); Chloride 99 mmol/L (98-107); Globulin 2.9 g/dL (1.3-4.6); Glucose 170 mg/dL (65-115); Osmolality Calculated 288 mOsm/kg (285-295); Potassium 3.4 mmol/L (3.5-5.1); Sodium 138 mmol/L (136-145); Total Bilirubin 0.6 mg/dL (0.15-1.2); Total Protein 6.4 g/dL (6.6-8.7); Troponin(5th) Baseline 37 ng/L (0-15)
--- NOTE | 2023-11-18 08:17 | XR_ITS ---
WS: [id number] Portable AP upright chest, 11/18/2023 Clinical Data: dyspnea/cough Comparison: Two-view chest, 12/07/2018 Findings: No nodules, masses or effusions are seen. The heart is normal. The pulmonary vascularity is not increased. No pneumonia or pneumothorax is seen. The aortic arch shows mild tortuosity. There ar e monitor leads on the chest wall. Impression: Atherosclerosis.
--- NOTE | 2023-11-18 09:34 | ECG_ITS ---
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 Measurements Intervals [place] Rate: 63 P: 8 ME: 193 QRS: -42 QRSD: 102 T: -2 QT: 396 QTc: 407 Interpretive Statements SINUS RHYTHM WITH SINUS ARRHYTHMIA LEFT AXIS DEVIATION [QRS AXIS < -30] POSSIBLE ANTERIOR MYOCARDIAL INFARCTION , OF INDETERMINATE AGE [30 ms Q WAVE IN V3/V4, OR R < 0.2 mV IN V4] Compared to ECG 11/18/2023 07:25:10 No significant changes Electronically Signed On 11-18-2023 10:10:35 SPEEDER FRAME TENDER by Selvin Huff M.D. [id number]
[2023-11-18] MEDS: acetaminophen 500 mg Tablet 1000 MG PO (10:21)
--- NOTE | 2023-11-25 07:55 | DCPLANNER ---
Message sent to pulmongy for a folllow up on sever sleep apnea with secondary polycythemia
== END 2023-11-18 11:15 | disposition home or self-care (01) ==
PROVIDERS: Emergency Provider Family Medicine; PCP Family Medicine
DX: E11.22 Type 2 diabetes mellitus with diabetic chronic kidney disease (principal); I12.9 Hypertensive chronic kidney disease with stage 1 through stage 4 chronic kidney disease, or unspecified chronic kidney disease; N18.9 Chronic kidney disease, unspecified; E78.2 Mixed hyperlipidemia; F17.210 Nicotine dependence, cigarettes, uncomplicated; F17.220 Nicotine dependence, chewing tobacco, uncomplicated; E66.01 Morbid (severe) obesity due to excess calories; Z68.41 Body mass index [BMI] 40.0-44.9, adult; G47.30 Sleep apnea, unspecified; D75.1 Secondary polycythemia; Z79.4 Long term (current) use of insulin
CPT/HCPCS: 36415; 71045; 80053; 84484; 85025; 93005; 99285

== ENCOUNTER → 2023-12-08 17:25 | Outpatient (BNVA) | payer MEDICARE, SELFPAY | PROVIDERS: PCP Family Medicine; Visit Provider Family Medicine | DX: N52.9 Male erectile dysfunction, unspecified (principal); E78.2 Mixed hyperlipidemia; E11.22 Type 2 diabetes mellitus with diabetic chronic kidney disease; N18.30 Chronic kidney disease, stage 3 unspecified; Z79.4 Long term (current) use of insulin | CPT/HCPCS: 80061; 83036; 83721 ==

== ENCOUNTER → 2024-02-04 08:28 | Outpatient (BNVA) | payer MEDICARE, SELFPAY | PROVIDERS: PCP Family Medicine; Visit Provider Anesthesiology Pain Medicine | DX: M70.71 Other bursitis of hip, right hip; M54.31 Sciatica, right side; Y93.9 Activity, unspecified; M17.0 Bilateral primary osteoarthritis of knee | CPT/HCPCS: 99214 ==

== ENCOUNTER 2024-02-11 07:23 | Oncology outpatient (recurring) (ONCR) | payer MEDICARE, SELFPAY ==
[2024-02-11 07:57] LABS: Basophils % 0.3 %; Eosinophils # 0.1 10^3/uL (0.0-0.8); Hematocrit 44.7 % (37-53); Lymphocytes # 1.1 10^3/uL (0.8-4.8); Lymphocytes % 11.2 %; Mean Corpuscular HGB Conc 34.2 g/dL (30-55); Mean Corpuscular Hemoglobin 30.4 pg (27-33); Mean Corpuscular Volume 88.9 fl (82-101); Mean Platelet Volume 9.6 fL (7.4-10.4); Monocytes # 0.8 10^3/uL (0.2-0.9); Monocytes % 7.6 %; Neutrophils # 7.86 10^3/uL (1.8-7.7); Neutrophils % 79.4 %; Nucleated Red Blood Cells % 0 %; Platelet Count 282 10^3/cmm (157-399); Red Blood Count 5.03 10^6/uL (3.85-5.65); Red Cell Distribution Width 12.7 % (12.1-15.1)
[2024-02-11 08:41] LABS: Alanine Aminotransferase 10 U/L (0-41); Albumin Level 3.9 g/dL (3.5-5.2); Alkaline Phosphatase 50 U/L (40-130); Anion Gap 16.1 (5-19); Aspartate Amino Transferase 11 U/L (0-40); Blood Urea Nitrogen 15 mg/dL (8-23); Calcium 9.5 mg/dL (8.5-10.5); Carbon Dioxide 26 mmol/L (22-29); Chloride 102 mmol/L (98-107); Creatinine Clr Calc Pharmacy 121.8833; Globulin 2.9 g/dL (1.3-4.6); Glomerular Filtration Rate 84.7 mL/min (90-130); Glucose 129 mg/dL (65-115); Lactate Dehydrogenase 188 U/L (135-225); Osmolality Calculated 293 mOsm/kg (285-295); Potassium 4.1 mmol/L (3.5-5.1); Sodium 140 mmol/L (136-145); Total Bilirubin 0.5 mg/dL (0.15-1.2); Total Protein 6.8 g/dL (6.6-8.7)
== END 2024-02-14 23:59 | disposition home or self-care (01) ==
PROVIDERS: PCP Family Medicine; Visit Provider Internal Medicine
DX: Z53.9 Procedure and treatment not carried out, unspecified reason (principal); M17.12 Unilateral primary osteoarthritis, left knee; D75.1 Secondary polycythemia; E66.01 Morbid (severe) obesity due to excess calories; Z68.43 Body mass index [BMI] 50.0-59.9, adult; G47.30 Sleep apnea, unspecified
CPT/HCPCS: 20610; 36415; 80053; 83615; 85025; 99214; J1030; J3490

== ENCOUNTER → 2024-05-04 14:20 | Outpatient (BNVA) | payer MEDICARE, SELFPAY | PROVIDERS: PCP Family Medicine; Visit Provider Anesthesiology Pain Medicine | DX: M70.71 Other bursitis of hip, right hip; M54.31 Sciatica, right side; Y93.9 Activity, unspecified; M17.0 Bilateral primary osteoarthritis of knee | CPT/HCPCS: 99214 ==

== ENCOUNTER → 2024-06-07 11:57 | Outpatient (BNVA) | payer MEDICARE, SELFPAY | PROVIDERS: PCP Family Medicine; Visit Provider Student in an Organized Health Care Education/Training Program | DX: M17.0 Bilateral primary osteoarthritis of knee (principal) | CPT/HCPCS: 20610; 73560; 73565; J3301 ==

== ENCOUNTER → 2024-07-27 13:23 | Outpatient (BNVA) | payer MEDICARE, SELFPAY | PROVIDERS: PCP Family Medicine; Visit Provider Family Medicine | DX: Z79.4 Long term (current) use of insulin (principal); I10 Essential (primary) hypertension; E78.2 Mixed hyperlipidemia; E11.22 Type 2 diabetes mellitus with diabetic chronic kidney disease; N18.30 Chronic kidney disease, stage 3 unspecified; E55.9 Vitamin D deficiency, unspecified; E53.8 Deficiency of other specified B group vitamins; G47.30 Sleep apnea, unspecified | CPT/HCPCS: 80053; 80061; 82306; 82607; 83036; 84443; 85025 ==

== ENCOUNTER → 2024-09-20 12:35 | Outpatient (BNVA) | payer MEDICARE, SELFPAY | PROVIDERS: PCP Nurse Practitioner Family; Visit Provider Student in an Organized Health Care Education/Training Program | DX: M17.0 Bilateral primary osteoarthritis of knee (principal) | CPT/HCPCS: 20610; 99213; J3301 ==

== ENCOUNTER → 2024-12-21 16:12 | Outpatient (BNVA) | payer MEDICARE, SELFPAY | PROVIDERS: PCP Nurse Practitioner; Visit Provider Nurse Practitioner | DX: E11.22 Type 2 diabetes mellitus with diabetic chronic kidney disease (principal); Z79.4 Long term (current) use of insulin; Z12.5 Encounter for screening for malignant neoplasm of prostate; N18.30 Chronic kidney disease, stage 3 unspecified; E11.9 Type 2 diabetes mellitus without complications | CPT/HCPCS: 80053; 80061; 83036; 83880; 84443; G0103 ==

== ENCOUNTER → 2025-01-13 08:02 | Outpatient (BNVA) | payer MEDICARE, SELFPAY | PROVIDERS: PCP Nurse Practitioner; Visit Provider Physician Assistant | DX: M17.0 Bilateral primary osteoarthritis of knee (principal) | CPT/HCPCS: 20610; 99213; J3301 ==

== ENCOUNTER 2025-01-18 09:16 | Outpatient (CLI) | payer MEDICARE, SELFPAY ==
--- NOTE | 2025-01-18 09:15 | USCV_ITS ---
Louie Nagel Age: 64 Gender: M : 1960 Exam Date: 01/18/2025 09:26 Ordering Phys: Denys Cheema Technologist: ISHAN [place] [facility] [place]: sob cp BP: 120 / 70 HR: 84 Rhythm: Sinus Technical Quality: Adequate MEASUREMENTS (Male / Female) Normal Values 2D ECHO LV Diastolic Diameter PLAX 5.2 cm 4.2 - 5.9 / 3.9 - 5.3 cm IVS Diastolic Thickness 1.4 cm 0.6 - 1.0 / 0.6 - 0.9 cm IVS Systolic Thickness 1.8 cm LVPW Diastolic Thickness 1.3 cm 0.6 - 1.0 / 0.6 - 0.9 cm LVPW Systolic Thickness 1.8 cm LVOT Diameter 2.0 cm LV Ejection Fraction 2D Teich 63.0 % LV Ejection Fraction MOD 4C 61.8 % LV Ejection Fraction MOD 2C 62.8 % LV Ejection Fraction 2C AL 64.5 % LA Diameter 4.7 cm RA Systolic Volume 4C AL 47.9 ml RA Systolic Volume 4C MOD 45.8 ml Aorta at Sinotubular Diameter 3.5 cm IVC Diameter 2.3 cm M-MODE LA Ao Ratio MM 1.3 AV Cusp Separation MM 2.5 cm DOPPLER AV Peak Velocity 118.0 cm/s LVOT Peak Velocity 85.0 cm/s AV Area Cont Eq vti 2.4 cm squared AV Area Cont Eq pk 2.3 cm squared MV Peak Velocity 82.0 cm/s MV Area PHT 5.8 cm squared Mitral E to A Ratio 0.8 TR Peak Velocity 176.0 cm/s TR Peak Gradient 12.4 mmHg TV Peak E Velocity 68.0 cm/s PV Peak Velocity 104.0 cm/s FINDINGS Left Ventricle Normal left ventricular size, systolic function and wall thickness, with no regional wall motion abnormalities. Left ventricular ejection fraction is estimated at 60 %. Grade I/IV diastolic dysfunction (abnormal relaxation filling pattern), normal to mildly elevated filling pressures. Right Ventricle The right ventricle is normal in size and function. Right Atrium The right atrium is normal in size. Left Atrium The left atrium is normal in size. Mitral Valve Mildly thickened mitral valve. No mitral valve stenosis. Trace mitral valve regurgitation. Aortic Valve Mild aortic valve calcification. No aortic valve stenosis. Trace aortic valve regurgitation. Tricuspid Valve Structurally normal tricuspid valve without significant stenosis or regurgitation. Pulmonary artery systolic pressure is normal. Pulmonic Valve Structurally normal pulmonic valve without significant stenosis. There is no pulmonic regurgitation. Pericardium Normal pericardium without effusion. Aorta Normal ascending aorta dimension. IVC The inferior vena cava appears normal. CONCLUSIONS Normal left ventricular size, systolic function and wall thickness, with no regional wall motion abnormalities. Left ventricular ejection fraction is estimated at 60 %. Grade I/IV diastolic dysfunction (abnormal relaxation filling pattern), normal to mildly elevated filling pressures. There is no pericardial effusion. No significant valve abnormalities. Right atrial pressure is around 5 mm of mercury. Rubén Drew MD (Electronically Signed) Final Date: 18 January 2025 21:40 S
== END 2025-01-18 09:17 | disposition home or self-care (01) ==
PROVIDERS: PCP Nurse Practitioner; Visit Provider Nurse Practitioner
DX: I10 Essential (primary) hypertension (principal); I50.9 Heart failure, unspecified; R93.1 Abnormal findings on diagnostic imaging of heart and coronary circulation; I05.9 Rheumatic mitral valve disease, unspecified; I35.8 Other nonrheumatic aortic valve disorders
CPT/HCPCS: 93306

== ENCOUNTER → 2025-03-06 10:33 | Outpatient (BNVA) | payer MEDICARE, SELFPAY | PROVIDERS: PCP Nurse Practitioner Family; Visit Provider Nurse Practitioner | DX: E11.22 Type 2 diabetes mellitus with diabetic chronic kidney disease (principal); Z79.4 Long term (current) use of insulin; J30.1 Allergic rhinitis due to pollen; E53.8 Deficiency of other specified B group vitamins; E55.9 Vitamin D deficiency, unspecified; E78.2 Mixed hyperlipidemia; I10 Essential (primary) hypertension; E11.65 Type 2 diabetes mellitus with hyperglycemia; I50.9 Heart failure, unspecified; E03.8 Other specified hypothyroidism; L97.929 Non-pressure chronic ulcer of unspecified part of left lower leg with unspecified severity; M79.662 Pain in left lower leg; R60.9 Edema, unspecified | CPT/HCPCS: 80053; 80061; 81000; 82306; 82607; 83036; 84443 ==

== ENCOUNTER 2025-03-17 11:08 | Outpatient (CLI) | payer MEDICARE, SELFPAY ==
--- NOTE | 2025-03-17 11:30 | USCV_ITS ---
Louie Nagel Age: 64 Gender: M : 1960 Exam Date: 03/17/2025 11:35 Ordering Phys: Denys Cheema Technologist: MARVIN Exam Location: [facility] [place] Indication: left leg swelling HISTORY: LEFT LOWER EXTREMITY SWELLING PROCEDURES: Venous duplex imaging was performed in only the left lower extremity. The following venous structures were evaluated: common femoral vein, profunda vein, proximal portion of the greater saphenous vein, superficial femoral vein, and the popliteal vein. In addition, the posterior tibial and peroneal trunk were evaluated. FINDINGS: No evidence of DVT seen in any vessel visualized at this time. CONCLUSIONS No evidence of left lower extremity DVT. Gerber Fritz MD (Electronically Signed) Final Date: 17 Mar 2025 13:37 S
== END 2025-03-17 11:09 | disposition home or self-care (01) ==
LOC: RAD 11:08
PROVIDERS: PCP Nurse Practitioner Family; Visit Provider Nurse Practitioner
DX: M79.662 Pain in left lower leg (principal); R60.9 Edema, unspecified
CPT/HCPCS: 93971

== ENCOUNTER → 2025-04-19 12:43 | Outpatient (BNVA) | payer MEDICARE, SELFPAY | PROVIDERS: PCP Nurse Practitioner Family; Visit Provider Student in an Organized Health Care Education/Training Program | DX: M17.0 Bilateral primary osteoarthritis of knee (principal) | CPT/HCPCS: 20610; 99213; J3301; J9999 ==

== ENCOUNTER → 2025-06-05 11:00 | Outpatient (BNVA) | payer MEDICARE, SELFPAY | PROVIDERS: PCP Nurse Practitioner; Visit Provider Nurse Practitioner | DX: E11.22 Type 2 diabetes mellitus with diabetic chronic kidney disease (principal); E78.2 Mixed hyperlipidemia; Z79.4 Long term (current) use of insulin; N18.30 Chronic kidney disease, stage 3 unspecified | CPT/HCPCS: 80053; 83036; 84403 ==

== ENCOUNTER → 2025-08-01 13:34 | Outpatient (BNVA) | payer MEDICARE, SELFPAY | PROVIDERS: PCP Nurse Practitioner; Visit Provider Student in an Organized Health Care Education/Training Program | DX: M17.0 Bilateral primary osteoarthritis of knee (principal) | CPT/HCPCS: 20610; 99213; J3301; J9999 ==

== ENCOUNTER → 2025-08-28 11:31 | Outpatient (BNVA) | payer MEDICARE, SELFPAY | PROVIDERS: PCP Nurse Practitioner; Visit Provider Nurse Practitioner | DX: E11.22 Type 2 diabetes mellitus with diabetic chronic kidney disease (principal); N18.2 Chronic kidney disease, stage 2 (mild); E53.8 Deficiency of other specified B group vitamins; E55.9 Vitamin D deficiency, unspecified; E03.8 Other specified hypothyroidism; Z79.4 Long term (current) use of insulin | CPT/HCPCS: 80053; 80061; 81000; 82043; 82306; 82607; 83036 ==

== ENCOUNTER → 2025-09-06 09:24 | Outpatient (BNVA) | payer MEDICARE, SELFPAY | PROVIDERS: PCP Nurse Practitioner; Visit Provider Nurse Practitioner | DX: I10 Essential (primary) hypertension (principal) | CPT/HCPCS: 80053 ==

== ENCOUNTER → 2025-10-03 12:18 | Outpatient (BNVA) | payer MEDICARE, SELFPAY | PROVIDERS: PCP Nurse Practitioner; Visit Provider Nurse Practitioner | DX: L03.039 Cellulitis of unspecified toe (principal) | CPT/HCPCS: 85025 ==

== ENCOUNTER → 2025-10-09 13:23 | Outpatient (BNVA) | payer MEDICARE, SELFPAY | PROVIDERS: PCP Nurse Practitioner; Visit Provider Nurse Practitioner | DX: L03.031 Cellulitis of right toe (principal) | CPT/HCPCS: 85025 ==

== ENCOUNTER → 2025-10-31 08:22 | Outpatient (BNVA) | payer MEDICARE, SELFPAY | PROVIDERS: PCP Nurse Practitioner; Visit Provider Nurse Practitioner | DX: L03.90 Cellulitis, unspecified (principal) | CPT/HCPCS: 85025 ==